=== PATIENT | male | born 1970 | race African-American/Black ===

== ENCOUNTER 2022-03-23 11:46 | Emergency (ER) | payer MEDICAID ==
[~2022-03-23] VITALS: Ht 203.2 cm; Wt 172.4 kg
[2022-03-23] MEDS ORDERED: HYDR25T PO (13:19)
[2022-03-23] MEDS ORDERED: ATORVASTATIN CA10 M1 PO (13:19)
[2022-03-23] MEDS ORDERED: LOSARTAN POTASS50 M1 PO (13:20)
[2022-03-23] MEDS ORDERED: AMLODIPINE BESYL5 MG PO (13:20)
[2022-03-23 13:51] LABS: BASO % 0.2 % (0.0-1.0); EOS # 0.1 10*3/uL (0.0-0.4); EOS % 1.1 % (1.0-4.0); HEMATOCRIT 42.3 % (42.0-52.0); LYMPH # 1.5 10*3/uL (1.3-4.4); LYMPH % 31.7 % (27.0-41.0); MEAN CELL VOLUME 82.1 fl (80.0-94.0); MEAN CORPUSCULAR HGB 27.8 pg (27.0-31.0); MEAN CORPUSCULAR HGB CONC 33.8 g/dl (33.0-37.0); MEAN PLATELET VOLUME 11.1 fl (9.6-12.3); MONO # 0.5 10*3/uL (0.1-1.0); NEUT # 2.7 10*3/uL (2.3-7.9); NEUT % 56.8 % (47.0-73.0); PLATELET COUNT AUTOMATED 152 10*3/uL (130-400); RED BLOOD COUNT 5.15 10*6/uL (4.50-5.90); RED CELL DISTRI WIDTH 13.9 % (0-14.5); WHITE BLOOD COUNT 4.7 10*3/uL (4.8-10.8)
[2022-03-23 14:05] LABS: ALKALINE PHOSPHATASE 98 U/L (45-117); BUN 19 mg/dl (7-24); CHLORIDE 106 mmol/L (98-107); CREATININE 0.89 mg/dL (0.70-1.30); POTASSIUM 3.3 mmol/L (3.5-5.1); SGOT/AST 34 IU/L (3-35); SGPT/ALT 39 U/L (12-78); SODIUM 141 mmol/L (136-145)
[2022-03-23 14:26] LABS: BILIRUBIN Negative (Negative); BLOOD 2+ (Negative); CLARITY Clear (Clear); COLOR Yellow (Yellow); GLUCOSE Negative (Negative); KETONE Negative (Negative); LEUKO ESTERASE Negative (Negative); NITRITE Negative (Negative); PH 7.5 (4.5-8.0)
[2022-03-23 14:38] LABS: RBC TNTC rbc/hpf (0-2)
[2022-03-23 14:39] LABS: BACTERIA TRACE; EPITHELIAL CELLS 0-2
[2022-03-23] MEDS ORDERED: HYDROCODONE-AC1 EAC1 PO (17:47)
[2022-03-23] MEDS ORDERED: FLOMAX0.4 MG PO (17:47)
[2022-03-23] MEDS ORDERED: Motrin,Rufen800 MG PO (17:47)
== END 2022-03-23 19:01 | disposition home or self-care (01) ==
LOC: ED 11:46
PROVIDERS: Physician Assistant
DX: N20.1 Calculus of ureter (principal); Z88.0 Allergy status to penicillin; Z79.899 Other long term (current) drug therapy

== ENCOUNTER 2022-09-27 10:12 | Emergency (ER) | payer MEDICAID ==
[~2022-09-27] VITALS: Ht 203.2 cm; Wt 181.4 kg
[~2022-09-27 10:12] MED LIST: AMLODIPINE BESYL5 MG PO; ATORVASTATIN CA10 M1 PO; FLOMAX0.4 MG PO; HYDR25T PO; HYDROCODONE-AC1 EAC1 PO; LOSARTAN POTASS50 M1 PO; Motrin,Rufen800 MG PO
[2022-09-27 11:15] LABS: BASO % 0.3 % (0.0-1.0); EOS # 0.1 10*3/uL (0.0-0.4); EOS % 1.3 % (1.0-4.0); HEMATOCRIT 45.4 % (42.0-52.0); LYMPH # 1.6 10*3/uL (1.3-4.4); LYMPH % 40.4 % (27.0-41.0); MEAN CORPUSCULAR HGB 28.8 pg (27.0-31.0); MEAN CORPUSCULAR HGB CONC 33.9 g/dl (33.0-37.0); MEAN PLATELET VOLUME 11.4 fl (9.6-12.3); MONO # 0.6 10*3/uL (0.1-1.0); MONO % 14.1 % (3.0-9.0); NEUT # 1.7 10*3/uL (2.3-7.9); NEUT % 43.6 % (47.0-73.0); PLATELET COUNT AUTOMATED 183 10*3/uL (130-400); RED BLOOD COUNT 5.34 10*6/uL (4.50-5.90); RED CELL DISTRI WIDTH 13.2 % (0-14.5)
[2022-09-27] MEDS ORDERED: HYDROCHLOROTHIA25 M1 PO (11:16)
[2022-09-27] MEDS ORDERED: VITAMIN D350 MC2 PO (11:17)
[2022-09-27] MEDS ORDERED: POTASSIUM CHLO20 ME3 PO (11:17)
[2022-09-27] MEDS ORDERED: ATORVASTATIN CA10 M1 PO (11:21)
[2022-09-27 11:26] LABS: ACT PARTIAL THROMBO TIME 28.5 SECONDS (20.0-32.1); INTERNATIONAL NORM RATIO 1.1 (2.0-3.5)
[2022-09-27 11:38] LABS: ALKALINE PHOSPHATASE 85 U/L (46-116); BUN 11 mg/dl (9-23); CHLORIDE 104 mmol/L (98-107); CREATININE 0.91 mg/dL (0.70-1.30); POTASSIUM 3.3 mmol/L (3.4-5.1); SGPT/ALT 18 U/L (10-49); TOTAL PROTEIN 7.6 gm/dL (6.0-8.0)
== END 2022-09-27 12:21 | disposition left against medical advice (07) ==
LOC: ED 10:12
PROVIDERS: Family Medicine
DX: H53.141 Visual discomfort, right eye (principal); Z88.0 Allergy status to penicillin; F10.90 Alcohol use, unspecified, uncomplicated